=== PATIENT | male | born 1955 | race Caucasian/White ===

== ENCOUNTER 2021-12-11 07:30 | Outpatient (REF) | payer BC, SELFPAY ==
--- NOTE | ~2021-12-11 | XR_ITS ---
EXAMINATION: XR CERVICAL SPINE CLINICAL INFORMATION: Sprain. COMPARISON: None TECHNIQUE: 6 views of the cervical spine, inclusive of flexion and extension views, were obtained. FINDINGS: There is normal cervical lordosis. There is grade 1 anterolisthesis C6 over C7. The rest of the vertebral alignment is normal. The disc heights are normal. There is mild narrowing of the left C4-C5 neural foramina. The rest of the neural foramina are widely patent. No acute fracture, dislocation seen. No lytic or sclerotic process. There is moderate left C6-C7 and minimal C4-C5 facet joint hypertrophy and arthropathy. The paravertebral soft tissues are normal. XR/XR cervical spine min 6V IMPRESSION: Mild narrowing of the left C4-C5 neural foramina. Moderate left C6-C7 and mild left C5-C6 facet joint arthropathy and hypertrophy. No visible acute fracture or dislocation.
== END 2021-12-11 07:31 | disposition home or self-care (01) ==
LOC: HO.XRAY 07:30
PROVIDERS: PCP Neuromusculoskeletal Medicine, Sports Medicine; Visit Provider Neuromusculoskeletal Medicine, Sports Medicine
DX: S13.9XXD Sprain of joints and ligaments of unspecified parts of neck, subsequent encounter (principal)
CPT/HCPCS: 72052

== ENCOUNTER 2022-04-27 07:19 | Outpatient (REF) | payer BC, SELFPAY ==
--- NOTE | ~2022-04-27 | XR_ITS ---
EXAMINATION: XR FOOT, LEFT CLINICAL INFORMATION: Pain. Sprain. COMPARISON: None TECHNIQUE: AP, lateral, and oblique views of the left foot. FINDINGS: Bone alignment is normal. No fracture or dislocation is seen. Joint spaces are normal. There is a small plantar calcaneal spur. XR/XR foot LT min 3V IMPRESSION: Small plantar calcaneal spur.
[2022-04-27 07:36] LABS: MANUAL DIFF FLAG NO
[2022-04-27 08:06] LABS: Basophils Percent Auto 0.7 % (0-2); Eosinophils Absolute Auto 0.2 X10*3/uL (0.0-0.4); Eosinophils Percent Auto 4.1 % (0-4); Hematocrit 43.6 % (42.0-52.0); Hemoglobin 14.6 g/dl (14.0-18.0); Imm Gran Abs Auto 0.02 X10*3/uL (0.00-0.03); Imm Gran Pct Auto 0.4 % (0.0-0.4); Lymphocytes Absolute Auto 1.3 X10*3/uL (1.2-4.9); Mean Corpuscular HGB Conc 33.5 g/dl (31.0-36.0); Mean Corpuscular Hemoglobin 32.8 pg (27.0-33.0); Mean Platelet Volume 9.3 fL (9.4-12.4); Monocytes Absolute Auto 0.5 X10*3/uL (0.1-1.2); Monocytes Percent Auto 9.3 % (2-11); Neutrophils Absolute Auto 3.2 x10*3/uL (2.0-8.3); Neutrophils Percent Auto 60.5 % (45-73); Platelet Count 170 X10*3/uL (160-400); Red Blood Count 4.45 X10*6/uL (4.60-5.80); White Blood Count 5.4 X10*3/uL (4.8-10.8)
[2022-04-27 08:15] LABS: Estimated Average Glucose 103 mg/dL; Hemoglobin A1c % 5.2 %
[2022-04-27 08:33] LABS: Alanine Aminotransferase 26 U/L (0-40); Albumin Level 4.1 g/dL (3.5-5.0); Alkaline Phosphatase 104 U/L (39-117); Anion Gap 12 (12-20); Aspartate Amino Transferase 23 U/L (5-37); Bilirubin Total 0.8 mg/dL (0.0-1.0); Blood Urea Nitrogen 21 mg/dL (9-16); C Reactive Protein 0.16 mg/dL (< or = 0.50); Calcium 9.6 mg/dL (8.4-10.2); Carbon Dioxide 28 mmol/L (22-29); Chloride 106 mmol/L (96-108); Cholesterol 201 mg/dL; Estimated Glomerular Filt Rate > 60; Glucose Random 95 mg/dL (60-115); HDL Cholesterol 42 mg/dL; LDL Cholesterol Calculated 139 mg/dl; Potassium 4.6 mmol/L (3.3-5.1); Sodium 141 mmol/L (135-145); Total Protein 6.8 g/dL (6.5-8.0); Triglycerides 100 mg/dL
[2022-04-27 09:13] LABS: Folate 15.3 ng/mL (> or = 4.0); Vitamin B12 543 pg/mL (200-900)
== END 2022-04-27 07:20 | disposition home or self-care (01) ==
LOC: HO.LAB 07:19
PROVIDERS: PCP Neuromusculoskeletal Medicine, Sports Medicine; Visit Provider Neuromusculoskeletal Medicine, Sports Medicine
DX: Z00.00 Encounter for general adult medical examination without abnormal findings (principal); S93.602A Unspecified sprain of left foot, initial encounter; R53.83 Other fatigue
CPT/HCPCS: 36415; 73630; 80053; 80061; 82607; 82746; 83036; 85025; 86140

== ENCOUNTER 2022-05-14 16:04 | Outpatient (REF) | payer BC, SELFPAY ==
--- NOTE | ~2022-05-14 | XR_ITS ---
EXAMINATION: XR KNEE, RIGHT CLINICAL INFORMATION: Strain injury. COMPARISON: None TECHNIQUE: AP, lateral, tunnel, and sunrise views of the right knee. FINDINGS: Bones and soft tissues are normal. No fracture or joint effusion. Alignment is anatomic. Joint spaces are well maintained. There is a minimal peripheral osteophyte noted of the lateral articular surface of the patella. An enthesophyte arises from the medial femoral condyle. No abnormal soft tissue calcification. XR/XR knee RT 4V IMPRESSION: Unremarkable right knee.
== END 2022-05-14 16:05 | disposition home or self-care (01) ==
LOC: HO.XRAY 16:04
PROVIDERS: PCP Neuromusculoskeletal Medicine, Sports Medicine; Visit Provider Neuromusculoskeletal Medicine, Sports Medicine
DX: S83.91XD Sprain of unspecified site of right knee, subsequent encounter (principal)
CPT/HCPCS: 73564

== ENCOUNTER 2022-08-17 16:13 | Outpatient (REF) | payer BC, SELFPAY ==
[2022-08-21 21:47] LABS: Tetanus Antitoxiod Antibody >7.00 IU/mL
== END 2022-08-17 16:14 | disposition home or self-care (01) ==
LOC: HO.LAB 16:13
PROVIDERS: PCP Neuromusculoskeletal Medicine, Sports Medicine; Visit Provider Neuromusculoskeletal Medicine, Sports Medicine
DX: Z01.84 Encounter for antibody response examination (principal)
CPT/HCPCS: 36415; 86648; 86774

== ENCOUNTER 2022-10-11 07:28 | Outpatient (REF) | payer BC, SELFPAY ==
[2022-10-11 07:42] LABS: MANUAL DIFF FLAG NO
[2022-10-11 08:05] LABS: Basophils Percent Auto 0.7 % (0-2); Eosinophils Absolute Auto 0.2 X10*3/uL (0.0-0.4); Eosinophils Percent Auto 3.9 % (0-4); Hematocrit 45.4 % (42.0-52.0); Hemoglobin 15.6 g/dl (14.0-18.0); Imm Gran Abs Auto 0.01 X10*3/uL (0.00-0.03); Imm Gran Pct Auto 0.2 % (0.0-0.4); Lymphocytes Absolute Auto 1.4 X10*3/uL (1.2-4.9); Mean Corpuscular HGB Conc 34.4 g/dl (31.0-36.0); Mean Corpuscular Volume 98.9 fL (80.0-98.0); Mean Platelet Volume 9.1 fL (9.4-12.4); Monocytes Absolute Auto 0.5 X10*3/uL (0.1-1.2); Neutrophils Absolute Auto 3.2 x10*3/uL (2.0-8.3); Neutrophils Percent Auto 59.2 % (45-73); Platelet Count 194 X10*3/uL (160-400); Red Blood Count 4.59 X10*6/uL (4.60-5.80); Red Cell Distribution Width 12.8 % (11.0-16.0); White Blood Count 5.3 X10*3/uL (4.8-10.8)
[2022-10-11 09:08] LABS: Alanine Aminotransferase 30 U/L (0-40); Albumin Level 4.3 g/dL (3.5-5.0); Alkaline Phosphatase 110 U/L (39-117); Anion Gap 12 (12-20); Aspartate Amino Transferase 24 U/L (5-37); Bilirubin Total 0.7 mg/dL (0.0-1.0); Blood Urea Nitrogen 16 mg/dL (9-16); Calcium 9.5 mg/dL (8.4-10.2); Carbon Dioxide 31 mmol/L (22-29); Chloride 106 mmol/L (96-108); Cholesterol 220 mg/dL; Estimated Glomerular Filt Rate > 60; Glucose Random 91 mg/dL (60-115); HDL Cholesterol 48 mg/dL; LDL Cholesterol Calculated 157 mg/dl; Potassium 4.5 mmol/L (3.3-5.1); Prostate Specific Antigen 2.06 ng/mL (<0.05-4.0); Sodium 144 mmol/L (135-145); T4 Thyroxine 9.2 ug/dL (4.5-12.0); Thyroid Stimulating Hormone 1.77 uIU/mL (0.32-4.0); Total Protein 6.9 g/dL (6.5-8.0); Triglycerides 76 mg/dL
[2022-10-11 11:22] LABS: Reflex LDLD? No
[2022-10-13 04:18] LABS: Triiodothyronine T3 Total 117 ng/dL (76-181)
[2022-10-19 23:21] LABS: Testosterone, Free 74.2 pg/mL (35.0-155.0); Testosterone, Total 613 ng/dL (250-1100)
== END 2022-10-11 07:29 | disposition home or self-care (01) ==
LOC: HO.LAB 07:28
PROVIDERS: PCP Neuromusculoskeletal Medicine, Sports Medicine; Visit Provider Neuromusculoskeletal Medicine, Sports Medicine
DX: Z00.00 Encounter for general adult medical examination without abnormal findings (principal); E03.9 Hypothyroidism, unspecified; Z12.5 Encounter for screening for malignant neoplasm of prostate
CPT/HCPCS: 36415; 80053; 80061; 84153; 84402; 84403; 84436; 84443; 84480; 85025

== ENCOUNTER 2023-06-17 08:23 | Outpatient (REF) | payer BC, SELFPAY ==
--- NOTE | ~2023-06-17 | XR_ITS ---
EXAMINATION: XR KNEE, RIGHT CLINICAL INFORMATION: Reason for Exam RIGHT KNEE SPRAIN/STRAIN COMPARISON: Knee radiographs 05/14/2022 TECHNIQUE: 4 views of the knee FINDINGS: No acute fracture or dislocation. Mild degenerative changes of the knee with quadriceps tendon enthesopathy and small patellofemoral compartment osteophytes similar to prior.. No joint effusion. Soft tissues are unremarkable. XR/XR knee RT 4V IMPRESSION: * No acute osseous abnormality. * Mild degenerative changes of the knee.
[2023-06-17 08:48] LABS: MANUAL DIFF FLAG NO
[2023-06-17 09:00] LABS: Basophils Percent Auto 0.5 % (0-2); Eosinophils Absolute Auto 0.2 X10*3/uL (0.0-0.4); Eosinophils Percent Auto 2.4 % (0-4); Hematocrit 43.2 % (42.0-52.0); Hemoglobin 14.8 g/dl (14.0-18.0); Imm Gran Abs Auto 0.01 X10*3/uL (0.00-0.03); Imm Gran Pct Auto 0.2 % (0.0-0.4); Lymphocytes Absolute Auto 1.3 X10*3/uL (1.2-4.9); Lymphocytes Percent Auto 21.6 % (20-40); Mean Corpuscular HGB Conc 34.3 g/dl (31.0-36.0); Mean Corpuscular Hemoglobin 33.3 pg (27.0-33.0); Mean Corpuscular Volume 97.1 fL (80.0-98.0); Mean Platelet Volume 9.1 fL (9.4-12.4); Monocytes Absolute Auto 0.6 X10*3/uL (0.1-1.2); Monocytes Percent Auto 9.4 % (2-11); Neutrophils Absolute Auto 4.1 x10*3/uL (2.0-8.3); Neutrophils Percent Auto 65.9 % (45-73); Platelet Count 180 X10*3/uL (160-400); Red Blood Count 4.45 X10*6/uL (4.60-5.80); Red Cell Distribution Width 12.6 % (11.0-16.0); White Blood Count 6.2 X10*3/uL (4.8-10.8)
[2023-06-17 09:10] LABS: Estimated Average Glucose 94 mg/dL; Hemoglobin A1c % 4.9 %
[2023-06-17 09:34] LABS: Alanine Aminotransferase 25 U/L (0-40); Albumin Level 4.1 g/dL (3.5-5.0); Alkaline Phosphatase 98 U/L (39-117); Anion Gap 10 (12-20); Aspartate Amino Transferase 23 U/L (5-37); Bilirubin Total 1.1 mg/dL (0.0-1.0); Blood Urea Nitrogen 13 mg/dL (9-16); Calcium 9.3 mg/dL (8.4-10.2); Carbon Dioxide 28 mmol/L (22-29); Chloride 107 mmol/L (96-108); Cholesterol 195 mg/dL; Estimated Glomerular Filt Rate > 60; Glucose Random 96 mg/dL (60-115); HDL Cholesterol 42 mg/dL; LDL Cholesterol Calculated 126 mg/dl; Magnesium 2.1 mg/dL (1.6-2.6); Sodium 141 mmol/L (135-145); Total Protein 6.9 g/dL (6.5-8.0); Triglycerides 136 mg/dL
[2023-06-17 09:49] LABS: Free T4 (Free Thyroxine) 1.03 ng/dL (0.71-1.85); Thyroid Stimulating Hormone 1.39 uIU/mL (0.32-4.0)
[2023-06-17 09:50] LABS: Prostate Specific Antigen 2.13 ng/mL (<0.05-4.0)
[2023-06-18 20:22] LABS: Triiodothyronine T3 Total 140 ng/dL (76-181)
[2023-06-21 02:23] LABS: Testosterone, Total 494 ng/dL (250-1100)
== END 2023-06-17 08:24 | disposition home or self-care (01) ==
LOC: HO.LAB 08:23
PROVIDERS: Visit Provider Neuromusculoskeletal Medicine, Sports Medicine
DX: Z00.00 Encounter for general adult medical examination without abnormal findings (principal); Z12.5 Encounter for screening for malignant neoplasm of prostate; R53.83 Other fatigue; S83.91XD Sprain of unspecified site of right knee, subsequent encounter; E78.41 Elevated Lipoprotein(a); E11.65 Type 2 diabetes mellitus with hyperglycemia
CPT/HCPCS: 36415; 73564; 80053; 80061; 83036; 83735; 84153; 84403; 84439; 84443; 84480; 85025

== ENCOUNTER 2023-10-04 07:52 | Outpatient (REF) | payer BC, SELFPAY ==
--- NOTE | ~2023-10-04 | XR_ITS ---
EXAMINATION: XR CHEST CLINICAL INFORMATION: Worsening wheeze COMPARISON: None available. TECHNIQUE: 2 views of the chest were obtained. FINDINGS: Heart and mediastinum within normal limits. No vascular congestion, consolidations or effusions. Diffusely increased interstitial markings throughout the lung cornelius. Mild degenerative changes. XR/XR chest 2V IMPRESSION: Diffusely increased interstitial markings, question small airway disease. No consolidations or failure.
== END 2023-10-04 07:53 | disposition home or self-care (01) ==
LOC: HO.XRAY 07:52
PROVIDERS: PCP Neuromusculoskeletal Medicine, Sports Medicine; Visit Provider Neuromusculoskeletal Medicine, Sports Medicine
DX: R06.2 Wheezing (principal)
CPT/HCPCS: 71046

== ENCOUNTER 2023-11-01 15:26 | Outpatient (REF) | payer BC, SELFPAY ==
--- NOTE | ~2023-11-01 | XR_ITS ---
EXAMINATION: XR CHEST CLINICAL INFORMATION: Episodic wheezing. COMPARISON: 10/04/2023 TECHNIQUE: 3 views of the chest. FINDINGS: Redemonstration of diffusely prominent lung parenchymal markings. There is no gross pneumothorax. Heart size is normal. No pleural effusion. Degenerative changes in the thoracic spine. XR/XR chest 2V IMPRESSION: Redemonstration of diffusely prominent lung parenchymal markings of indeterminate chronicity and etiology. Differential considerations include mild vascular congestion, inflammatory/infectious process or chronic process.
== END 2023-11-01 15:27 | disposition home or self-care (01) ==
LOC: HO.XRAY 15:26
PROVIDERS: Visit Provider Neuromusculoskeletal Medicine, Sports Medicine
DX: R06.2 Wheezing (principal)
CPT/HCPCS: 71046

== ENCOUNTER 2023-11-22 08:28 | Outpatient (REF) | payer BC, SELFPAY ==
--- NOTE | ~2023-11-22 | US_ITS ---
EXAMINATION: US ABDOMEN COMPLETE CLINICAL INFORMATION: Abdominal pain. COMPARISON: None. TECHNIQUE: Real-time imaging of the abdominal viscera. Technically limited study secondary to bowel gas. FINDINGS: PANCREAS: Obscured by bowel gas. ABDOMINAL AORTA: The proximal, mid, and distal segments are normal in caliber. INFERIOR VENA CAVA: Visualized portions are normal. LIVER: Normal. The liver is normal in size. The liver contour is normal. Parenchymal echogenicity is normal. No focal hepatic lesion. There is no intrahepatic biliary duct dilatation seen. GALLBLADDER: Normal. The gallbladder is physiologically distended without evidence of stones, sludge, polyps, wall thickening or pericholecystic fluid. COMMON BILE DUCT: Normal in caliber measuring 0.34 cm in diameter. RIGHT KIDNEY: Normal. No hydronephrosis. No renal calculi or focal parenchymal lesions. The kidney measures 11.1 cm in maximum dimension. LEFT KIDNEY: Normal. No hydronephrosis. No renal calculi or focal parenchymal lesions. The kidney measures 12.1 cm in maximum dimension. SPLEEN: Normal. The spleen measures 9.2 cm in maximum dimension. FREE FLUID: None. US/US abdomen complete IMPRESSION: Nonvisualization of the pancreas due to bowel gas. Otherwise normal abdominal ultrasound.
== END 2023-11-22 08:29 | disposition home or self-care (01) ==
LOC: HO.HMGCX 08:28
PROVIDERS: PCP Neuromusculoskeletal Medicine, Sports Medicine; Visit Provider Neuromusculoskeletal Medicine, Sports Medicine
DX: R10.9 Unspecified abdominal pain (principal)
CPT/HCPCS: 76700

== ENCOUNTER 2024-09-29 08:02 | Outpatient (REF) | payer BC, SELFPAY ==
[2024-09-29 08:22] LABS: MANUAL DIFF FLAG NO
[2024-09-29 08:58] LABS: Basophils Percent Auto 0.5 % (0-2); Eosinophils Absolute Auto 0.2 X10*3/uL (0.0-0.4); Eosinophils Percent Auto 3.3 % (0-4); Hematocrit 42.5 % (42.0-52.0); Hemoglobin 14.4 g/dl (14.0-18.0); Imm Gran Abs Auto 0.02 X10*3/uL (0.00-0.03); Imm Gran Pct Auto 0.4 % (0.0-0.4); Lymphocytes Absolute Auto 1.3 X10*3/uL (1.2-4.9); Lymphocytes Percent Auto 22.8 % (20-40); Mean Corpuscular HGB Conc 33.9 g/dl (31.0-36.0); Mean Corpuscular Hemoglobin 33.5 pg (27.0-33.0); Mean Corpuscular Volume 98.8 fL (80.0-98.0); Mean Platelet Volume 9.7 fL (9.4-12.4); Monocytes Absolute Auto 0.5 X10*3/uL (0.1-1.2); Monocytes Percent Auto 8.8 % (2-11); Neutrophils Absolute Auto 3.5 x10*3/uL (2.0-8.3); Neutrophils Percent Auto 64.2 % (45-73); Platelet Count 181 X10*3/uL (160-400); Red Cell Distribution Width 13.1 % (11.0-16.0); White Blood Count 5.5 X10*3/uL (4.8-10.8)
[2024-09-29 09:40] LABS: Alanine Aminotransferase 27 U/L (0-40); Alkaline Phosphatase 90 U/L (39-117); Anion Gap 9 (12-20); Aspartate Amino Transferase 29 U/L (5-37); Blood Urea Nitrogen 14 mg/dL (9-16); Calcium 9.3 mg/dL (8.4-10.2); Carbon Dioxide 29 mmol/L (22-29); Chloride 107 mmol/L (96-108); Cholesterol 211 mg/dL (<200); Estimated Glomerular Filt Rate > 60; Glucose Random 100 mg/dL (60-115); HDL Cholesterol 42 mg/dL (>40); LDL Cholesterol Calculated 153 mg/dL (<100); Potassium 4.1 mmol/L (3.3-5.1); Prostate Specific Antigen 2.35 ng/mL (<0.05-4.0); Sodium 141 mmol/L (135-145); Total Protein 6.9 g/dL (6.5-8.0); Triglycerides 80 mg/dL (<150)
[2024-09-29 09:46] LABS: T4 Thyroxine 9.3 ug/dL (4.5-12.0); Thyroid Stimulating Hormone 0.46 uIU/mL (0.32-4.0)
[2024-10-01 18:08] LABS: Triiodothyronine T3 Total 112 ng/dL (76-181)
[2024-10-07 18:43] LABS: Testosterone, Free 57.9 pg/mL (30.0-135.0); Testosterone, Total 526 ng/dL (250-1100)
== END 2024-09-29 08:03 | disposition home or self-care (01) ==
LOC: HO.LAB 08:02
PROVIDERS: PCP Neuromusculoskeletal Medicine, Sports Medicine; Visit Provider Neuromusculoskeletal Medicine, Sports Medicine
DX: Z00.00 Encounter for general adult medical examination without abnormal findings (principal); R51.9 Headache, unspecified; R53.83 Other fatigue; Z12.5 Encounter for screening for malignant neoplasm of prostate
CPT/HCPCS: 36415; 80053; 80061; 84153; 84402; 84403; 84436; 84443; 84480; 85025

== ENCOUNTER 2025-04-01 07:45 | Outpatient (REF) | payer BC, SELFPAY ==
--- NOTE | ~2025-04-01 | US_ITS ---
CLINICAL HISTORY: PELVIC PAIN US abdomen limited with duplex and color Doppler Comparison: US/SR - US ABDOMEN COMPLETE - 11/22/23 08:52 EST Findings: Sonographic evaluation of the area of clinical concern right lower quadrant postsurgical scar demonstrates shadowing from a abdominal mesh in this region. No masses lymphadenopathy or hernia was demonstrated on this dynamic study with and without Valsalva. Impression: 1. Shadowing from a known right lower quadrant abdominal wall mesh at the surgical scar region with no evidence of a hernia on this dynamic study This document has been electronically signed by: Blaine Flores MD on 04/01/2025 16:35:08
== END 2025-04-01 07:46 | disposition home or self-care (01) ==
LOC: HO.US 07:45
PROVIDERS: Visit Provider Neuromusculoskeletal Medicine, Sports Medicine
DX: R10.2 Pelvic and perineal pain (principal)
CPT/HCPCS: 76856

== ENCOUNTER 2025-04-14 09:37 | Outpatient (REF) | payer BC, SELFPAY ==
[2025-04-14 10:12] LABS: MANUAL DIFF FLAG NO
[2025-04-14 10:34] LABS: Basophils Percent Auto 0.5 % (0-2); Eosinophils Absolute Auto 0.2 X10*3/uL (0.0-0.4); Eosinophils Percent Auto 2.8 % (0-4); Hematocrit 41.8 % (42.0-52.0); Hemoglobin 14.2 g/dl (14.0-18.0); Imm Gran Abs Auto 0.01 X10*3/uL (0.00-0.03); Imm Gran Pct Auto 0.2 % (0.0-0.4); Lymphocytes Absolute Auto 1.2 X10*3/uL (1.2-4.9); Lymphocytes Percent Auto 19.5 % (20-40); Mean Corpuscular Hemoglobin 33.2 pg (27.0-33.0); Mean Corpuscular Volume 97.7 fL (80.0-98.0); Mean Platelet Volume 9.4 fL (9.4-12.4); Monocytes Absolute Auto 0.5 X10*3/uL (0.1-1.2); Monocytes Percent Auto 8.4 % (2-11); Neutrophils Absolute Auto 4.3 x10*3/uL (2.0-8.3); Neutrophils Percent Auto 68.6 % (45-73); Platelet Count 185 X10*3/uL (160-400); Red Blood Count 4.28 X10*6/uL (4.60-5.80); Red Cell Distribution Width 12.8 % (11.0-16.0); White Blood Count 6.3 X10*3/uL (4.8-10.8)
[2025-04-14 11:15] LABS: Anion Gap 10 (12-20); Blood Urea Nitrogen 17 mg/dL (9-16); Calcium 9.2 mg/dL (8.4-10.2); Carbon Dioxide 28 mmol/L (22-29); Chloride 106 mmol/L (96-108); Cholesterol 201 mg/dL (<200); Estimated Glomerular Filt Rate > 60; Glucose Fasting 93 mg/dL (60-99); HDL Cholesterol 44 mg/dL (>40); LDL Cholesterol Calculated 142 mg/dL (<100); Potassium 4.4 mmol/L (3.3-5.1); Sodium 140 mmol/L (135-145); Triglycerides 77 mg/dL (<150)
[2025-04-14 11:31] LABS: T4 Thyroxine 10.4 ug/dL (4.5-12.0); Thyroid Stimulating Hormone 0.58 uIU/mL (0.32-4.0)
[2025-04-15 06:58] LABS: Triiodothyronine T3 Free 3.6 pg/mL (2.3-4.2)
== END 2025-04-14 09:38 | disposition home or self-care (01) ==
LOC: HO.LAB 09:37
PROVIDERS: PCP Neuromusculoskeletal Medicine, Sports Medicine; Visit Provider Neuromusculoskeletal Medicine, Sports Medicine
DX: R51.9 Headache, unspecified (principal); R53.83 Other fatigue
CPT/HCPCS: 36415; 80048; 80061; 84436; 84443; 84481; 85025

== ENCOUNTER 2025-09-14 07:25 | Outpatient (REF) | payer BC, SELFPAY ==
--- OUTSIDE RECORDS SUMMARY | 2025-09-14 07:28 | XMS_ITS | Encounter Summary ---
Author Organization [facility] Address [address] [place] [phone] Phone Care Team Providers Care Flight Director Name Role Phone Kyle Lutz DO Primary Care Provider Encounter Details Date Type Department Care Team (Late st Contact Info) Description 02/12/2020 Ancillary Orders Virtual Department [address] [place] [address] Kyle Lutz DO [address] [place] [address] RLQ abdominal pain Social History Tobacco Use Types Packs/Day Years Used Date Smoking Tobacco: Never Smokeless Tobacco: Never Alcohol Use Standard Drinks/Week Comments Not Currently 0 (1 standard drink = 0.6 oz pur e alcohol) Sex and Gender Information Value Date Recorded Sex Assigned at Male 04/09/2019 12:05 AM EDT Legal Sex Male 9:58 PM EDT Gender Identity Male 04/09/2019 12:05 AM EDT Sexual Orientation Not on file documented as of this encounter Plan of Treatment Not on file documented as of this encounter Visit Diagnoses Diagnosis RLQ abdominal pain Abdominal pain, right lower quadrant documented in this encounter Care Teams Flight Director Relationship Specialty Start Date End Date Kyle Lutz DO [address] [place] [id number] PCP - General Internal Medicine 02/13/18 documented as of this encounter Additional Source Comments The information contained in this document represents components of the legal health record. It is not the complete legal health record.[facility]
--- OUTSIDE RECORDS SUMMARY | 2025-09-14 07:28 | XMS_ITS | Encounter Summary ---
Author Organization [facility] Address [address] [place] [phone] Phone Care Team Providers Care Digital Content Coordinator Name Role Phone Kyle Lutz DO Primary Care Provider Encounter Details Date Type Department Care Team (Latest Contact Info) Description 02/14/2018 Transcribe Orders [facility] [address] [place] [address] Kyle Lutz DO [address] [place] [address] Routine general medical examination at a health care facility (Primary Dx) Social History Tobacco Use Types Packs/Day Years Used Date Smoking Tobacco: Never Assessed Sex and Gender Information Value Date Recorded Sex Assigned at Male 04/09/2019 12:05 AM EDT Legal Sex Male 9:58 PM EDT Gender Identity Male 04/09/2019 12:05 AM EDT Sexual Orientation Not on file documented as of this encounter Plan of Treatment Not on file documented as of this encounter Results * (ABNORMAL) 25-OH vitamin D (02/14/2018 8:31 AM EDT) 25 OH VIT D (TOTAL) 22(L) 30 - 1,000 ng/mL [facility] Blood 02/14/2018 8:31 AM EDT 02/14/2018 8:36 AM EDT Kyle Lutz DO LAB BLOOD ORDERABLES F inal Result [address] [address] * Magnesium (02/14/2018 8:31 AM EDT) MAGNESIUM 2.0 1.6 - 2.6 mg/dL [facility] Blood 02/14/2018 8:31 AM EDT 02/14/2018 8:36 AM EDT us Kyle Lutz DO LAB BLOOD ORDERABLES F inal Result [address] [address] * T4, total (02/14/2018 8:31 AM EDT) THYROXINE 8.9 4.6 - 12.0 ug/dL [facility] Blood 02/14/2018 8:31 AM EDT 02/14/2018 8:36 AM EDT us Kyle Lutz DO LAB BLOOD ORDERABLES F inal Result [address] [address] * T3, Total (02/14/2018 8:31 AM EDT) TOTAL T3 106 80 - 200 ng/dL [facility] Blood 02/14/2018 8:31 AM EDT 02/14/2018 8:36 AM EDT Kyle Lutz DO LAB BLOOD ORDERABLES F inal Result [facility] [address] [place] [address] * TSH (02/14/2018 8:31 AM EDT) TSH 2.13 0.27 - 4.20 uIU/mL [facility] Blood 02/14/2018 8:31 AM EDT 02/14/2018 8:36 AM EDT Kyle Irizarryrity LAB BLOOD ORDERABLES F inal Result Performing Organization Address City/[facility]/ZIP Co de Phone Number [address] [address] * PSA (screening) (02/14/2018 8:31 AM EDT) PSA 1.45 0 - 4.00 ng/mL [facility] Blood 02/14/2018 8:31 AM EDT 02/14/2018 8:36 AM EDT [facility] F inal Result Performing Organization Address [facility] Co de Phone Number [address] [address] * Hemoglobin A1c (02/14/2018 8:31 AM EDT) HEMOGLOBIN A1C 5.1 4.3 - 5.8 % [facility] Blood 02/14/2018 8:31 AM EDT 02/14/2018 8:36 AM EDT [facility]LOOD [facility]LES F inal Result Performing Organization Address [facility] Co de Phone Number [address] [address] * (ABNORMAL) CBC and differential (02/14/2018 8:31 AM EDT) WBC 5.36 3.40 - 11.20 K/uL [facility] RBC 4.47(L) 4.50 - 5.50 M/uL [facility] HGB 14.6 13.0 - 17.0 g/dL [facility] HCT 42.4 40.0 - 51.0 % [facility] PLT 212 130 - 400 K/uL [facility] MCV 94.9 79.0 - 98.0 fL [facility] MCH 32.7 27.0 - 34.8 pg [facility] MCHC 34.4 31.5 - 36.0 g/dL [facility] RDW 11.9 10.8 - 14.6 % [facility] MPV 9.5 9.4 - 12.4 fl [facility] NRBC 0.00 /100 WBCs [facility] ABSOLUTE NRBC 0.00 K/uL [facility] DIFF METHOD Auto [facility] NEUTS 58.4 45.30 - 77.70 % [facility] LYMPHS 27.2 12.30 - 39.70 % [facility] MONOS 9.1 4.10 - 12.80 % [facility] EOS 4.1 0 - 7.2 % [facility] BASOS 0.6 0 - 2.80 % [facility] Granulocytes, immature (%) 0.6 0.0 - 0.9 % [facility] ABSOLUTE NEUTS 3.13 1.40 - 7.70 K/uL [facility] ABSOLUTE LYMPHS 1.46 0.60 - 3.20 K/uL [facility] ABSOLUTE MONOS 0.49 0.11 - 0.59 K/uL [facility] ABSOLUTE EOS 0.22 0.01 - 0.50 K/uL [facility] ABSOLUTE BASOS 0.03 0.00 - 0.08 K/uL [facility] Granulocytes, immature 0.03 0.00 - 0.05 K/uL [facility] Blood 02/14/2018 8:31 AM EDT 02/14/2018 8:36 AM EDT us Kyle Lutz DO LAB BLOOD ORDERABLES F inal Result [facility] [address] [place] [address] * Lipid panel (02/14/2018 8:31 AM EDT) HDL 35 mg/dL [facility] Comment: Interpretation: Risk Level Males Decreased >45 mg/dL Average 40-45 mg/dL Increased <40 mg/dL CHOLESTEROL 165 0 - 240 mg/dL [facility] TRIGLYCERIDES 105 30 - 160 mg/dL [facility] LDL 109 50 - 129 mg/dL [facility] Comment: LDL levels in terms of risk for coronary heart disease: <100 mg/dL: Optimal 100-129 mg/dL: Near or above optimal 130-159 mg/dL: Borderline high 160-189 mg/dL: High >190 mg/dL: Very High CARDIAC RISK RATIO 4.7 3.4 - 5.0 C [facility] Blood 02/14/2018 8:31 AM EDT 02/14/2018 8:36 AM EDT us Kyle Lutz DO LAB BLOOD ORDERABLES F inal Result [facility] [address] [place] [address] * (ABNORMAL) Comprehensive metabolic panel (02/14/2018 8:31 AM EDT) SODIUM 139 133 - 146 mmol/L [facility] POTASSIUM 4.4 3.3 - 5.1 mmol/L [facility] CHLORIDE 102 96 - 108 mmol/L [facility] CO2 27 21 - 35 mmol/L [facility] BUN 21(H) 6 - 19 mg/dL [facility] CREATININE 0.90 0.5 - 1.5 mg/dL [facility] GLUCOSE 98 70 - 99 mg/dL [facility] ALBUMIN 3.9 3.9 - 4.8 g/dL [facility] TOTAL PROTEIN 6.8 6.5 - 8.0 g/dL [facility] CALCIUM 8.8 8.4 - 10.3 mg/dL [facility] ALKALINE PHOSPHATASE 101 39 - 117 U/L [facility] TOTAL BILIRUBIN 0.4 0.0 - 1.2 mg/dL [facility] AST 23 0 - 37 U/L [facility] ALT 27 0 - 40 U/L [facility] GLOBULIN 2.9 1 - 4.8 g/dL [facility] EGFR 90 >59 mL/min/1.7 3m2 [facility] Comment:If patient is black, multiply result by 1.159. The eGFR calculation has changed from the MDRD equation to the CKD-EPI equation as of January 28, 2018. ANION GAP 14 10 - 20 mmol/L [facility] Blood 02/14/2018 8:31 AM EDT 02/14/2018 8:36 AM EDT Kyle Lutz DO LAB BLOOD ORDERABLES F inal Result Performing Organization Address City/State/[facility] Co de Phone Number [facility] [address] [place] [address] documented in this encounter Visit Diagnoses Diagnosis Routine general medical examination at a health care facility- Primary documented in this encounter Care Teams Digital Content Coordinator Relationship Specialty Start Date End Date Kyle Lutz DO [address] [place] [address] PCP - General Internal Medicine 02/13/18 documented as of this encounter Additional Source Comments The information contained in this document represents components of the legal health record. It is not the complete legal health record.[facility]
--- OUTSIDE RECORDS SUMMARY | 2025-09-14 07:28 | XMS_ITS | Encounter Summary ---
Author Organization [facility] Address [address] [place] [address] Phone Care Team Providers Care Sugarcane Research Technician Name Role Phone Kyle Lutz DO Primary Care Provider Encounter Details Date Type Department Care Team (Late st Contact Info) Description 11/01/2020 Ancillary Orders Virtual Department [address] [place] [address] Kyle Lutz DO [address] [place] [address] Sprain of pelvis, initial encounter Social History Tobacco Use Types Packs/Day Years [...] documented as of this encounter Results * XR PELVIS 1 VIEW (11/03/2020 8:38 AM EST) Anatomical Region Laterality Modality Pelvis Computed Radiogr aphy 11/03/2020 9:06 AM EST Impressions 11/03/2020 9:08 AM EST No pelvic pathology is apparent. POS [id number] Narrative 11/03/2020 9:08 AM EST Single view Compare 09/23/2019 No evidence of trauma, tumor or infection SI joints and symphysis pubis unremarkable. Procedure Note Joaquin Kirkland MD - 11/03/2020 Single view Compare 09/23/2019 No evidence of trauma, tumor or infection SI joints and symphysis pubis unremarkable. IMPRESSION: No pelvic pathology is apparent. POS [id number] Kyle Lutz DO IMG XR PELVIS Final Result documented in this encounter Visit Diagnoses Diagnosis Sprain of pelvis, initial encounter documented in this encounter Care Teams Sugarcane Research Technician Relationship Specialty Start Date End Date Kyle Lutz DO [address] [place] [id number] PCP - General Internal Medicine 02/13/18 documented as of this encounter Additional Source Comments The information contained in this document represents components of the legal health record. It is not the complete legal health record.[facility]
--- OUTSIDE RECORDS SUMMARY | 2025-09-14 07:28 | XMS_ITS | Clinical Summary ---
Author Organization [facility] Address [address] [place] [address] Phone Care Team Providers Care Wire Temperer Name Role Phone Kyle Lutz DO Primary Care Provider Allergies No known active allergies Medications levothyroxine (SYNTHROID, LEVOTHROID) 125 MCG tablet Take 125 mcg by mouth every morning. Active acetaminophen (TYLENOL) 325 mg tablet Take 2 tablets (650 mg total) by mouth every 6 (six) hours as needed for mild pain. 0 04/09/2019 Active oxyCODONE 5 MG immediate release tablet Take 1 tablet (5 mg total) by mouth every 6 (six) hours as needed for moderate pain. Partial fill ok 25 tablet 04/09/2019 Active Active Problems Problem Noted Date Diagnosed Date Hx of colonoscopy 04/09/2019 Resolved Problems Problem Noted Date Diagnosed Date Resolved Date Incarcerated right inguinal hernia 04/09/2019 04/09/2019 Immunizations Immunization Administration Dates Next Due Influenza High-Dose Trivalent Preservative Free IM 09/07/2020,09/07/2020 Social History Tobacco Use Types Packs/Day Years Used Date Smoking Tobacco: Never Smokeless Tobacco: Never Alcohol Use Standard Drinks/Week Comments Not Currently 0 (1 standard drink = 0.6 oz pur e alcohol) Education Answer Date Recorded Are you interested in more education? Not on yoko e 03/22/2023 Are you concerned about learning? Not on file 03/22/2023 No 03/22/2023 No 03/22/2023 Digital Access Answer Date Recorded No 04/22/2023 No 04/22/2023 No 04/22/2023 Reliable internet access at home? Not on file 04/22/2023 Device with a working camera? Not on file Sex and Gender Information Value Date Recorded Sex Assigned at Male 04/09/2019 12:05 AM EDT Legal Sex Male 9:58 PM EDT Gender Identity Male 04/09/2019 12:05 AM EDT Sexual Orientation Not on file Last Filed Vital Signs Vital Sign Reading Time Taken Comments Blood Pressure 108/63 04/09/2019 4:20 PM EDT Pulse 64 04/09/2019 4:20 PM EDT Temperature 37.5 C (99.5 F) 04/09/2019 4:20 PM EDT Respiratory Rate 16 04/09/2019 4:20 PM EDT Oxygen Saturation 97% 04/09/2019 4:20 PM EDT Inhaled Oxygen Concentration - - Weight 97.5 kg (215 lb) 04/09/2019 12:04 AM EDT Height 182.9 cm (6') 04/09/2019 12:04 AM EDT Body Mass Index 29.16 04/09/2019 12:04 AM EDT Plan of Treatment Health Maintenance Due Date Last Done Comments DEPRESSION SCREENING 1965 HEPATITIS C SCREENING 1971 SMOKING STATUS SCREENING (Once After 26 Yrs) 1979 COLOGUARD 1998 COLONOSCOPY 1998 COLORECTAL CANCER SCREENING 1998 FIT TEST 1998 FOBT 1998 SIGMOIDOSCOPY 1998 VIRTUAL COLONOSCOPY 1998 PNEUMOCOCCAL VACCINES (50+ years) (1 of 1 - PCV) 2003 ZOSTER VACCINES (1 of 2) 2003 TSH LEVEL 04/19/2021 04/19/2020, 09/26, 02/05/2019, Additional history exists Adult Td,Tdap Booster 05/18/2024 05/18/2014 LIPID PANEL 04/19/2025 04/19/2020, 08/27, 02/05/2019, Additional history exists INFLUENZA VACCINE (#1) 2025 , 09/07/2020, 09/08/2019, Additional history exists COVID-19 VACCINE (3 - season) 2025 12/28/2020, 11/30/2020 RSV VACCINE (1 - 1-dose 75+ series) 2028 HEPATITIS A VACCINES Aged Out No long er eligible based on patient's age to complete this topic HIB VACCINES Aged Out No longer eligi ble based on patient's age to complete this topic MENINGOCOCCAL VACCINES (ACWY) Aged Out No longer eligible based on patient's age to complete this topic MENINGOCOCCAL VACCINES (B) Aged Out N o longer eligible based on patient's age to complete this topic Medical Devices Implanted Type Area Interactive Media Designer Device Identifier Shelf Expiration Date Model / Serial / Lot Mesh Surgical 15cm 8 Hernia Prolene Polypropylene Nonabsorbable Repair Bx/[id number] - [id number] Implanted:Qty: 1 on 04/09/2019 by Ivy Estrada MD at [facility] STANDARD Right: Groin TARAH ETHICON / DIVISION [employer] J 07/25/2023 [id number] / / [id number] Procedures Procedure Name Priority Date/Time Associated Diagnosis Comments LIPID PANEL Routine 04/19/2020 8:43 AM EDT Myxedema heart disease Fatigue, unspecified type Vitamin D deficiency TSH Routine 04/19/2020 8:43 AM EDT Myxedema heart disease Fatigue, unspecified type Vitamin D deficiency from Last 3 Months or Most Recently Relevant to Health Maintenance Results * TSH (04/19/2020 8:43 AM EDT) TSH 0.98 0.27 - 4.20 uIU/mL [facility] Blood 04/19/2020 8:43 AM EDT 04/19/2020 8:45 AM EDT us Kyle Lutz DO LAB BLOOD ORDERABLES F inal Result [facility] [address] [place] [address] * Lipid panel (04/19/2020 8:43 AM EDT) HDL 50 mg/dL [facility] Comment: Interpretation <40 mg/dL: Low HDL cholesterol (major risk factor for CHD) Greater than or equal to 60 mg/dL: High HDL cholesterol ( negative risk factor for CHD) HDL - cholesterol is affected by a number of factors, e.g. smoking, excerise, hormones, sex and age. CHOLESTEROL 183 0 - 240 mg/dL [facility] TRIGLYCERIDES 89 30 - 160 mg/dL [facility] LDL 115 50 - 129 mg/dL [facility] Comment: LDL levels in terms of risk for coronary heart disease: <100 mg/dL: Optimal 100-129 mg/dL: Near or above optimal 130-159 mg/dL: Borderline high 160-189 mg/dL: High >190 mg/dL: Very High CARDIAC RISK RATIO 3.7 3.4 - 5.0 C [facility] Blood 04/19/2020 8:43 AM EDT 04/19/2020 8:45 AM EDT Kyle Lutz DO LAB BLOOD ORDERABLES F inal Result [facility] [address] [place] [address] from Last 3 Months or Most Recently Relevant to Health Maintenance Insurance MEDICARE A [facility] PPO MEDICARE A [facility] PPO MEDICARE A [place] [employer] OUT OF STATE PPO MEDICARE A [facility] PPO MEDICARE A [facility] OUT STATE PPO MEDICARE A [facility] PPO MEDICARE A [facility] OUT [facility] PPO MEDICARE A [facility] OUT [facility] PPO MEDICARE A [facility] PPO Care Teams Wire Temperer Relationship Specialty Start Date End Date Kyle Lutz DO [address] [place] [id number] PCP - General Internal Medicine 02/13/18 Additional Source Comments The information contained in this document represents components of the legal health record. It is not the complete legal health record.[facility]
--- OUTSIDE RECORDS SUMMARY | 2025-09-14 07:28 | XMS_ITS | Encounter Summary ---
Author Organization [facility] Address [address] [place] [address] Phone Care Team Providers Care Target Network Analyst Name Role Phone Kyle Lutz DO Primary Care Provider Encounter Details Date Type Department Care Team (Late st Contact Info) Description 09/23/2019 Ancillary Orders [facility], X-Ray - [address] [address] Kyle Lutz DO 15 [place] [address] Pain of upper abdomen Social History Tobacco Use Types Packs/Day Years [...] as of this encounter Results * XR ABDOMEN 1 VIEW (09/23/2019 8:23 AM EDT) Anatomical Region Laterality Modality Abdomen Radiographic Aidee ging 09/23/2019 1:36 PM EDT Impressions 09/23/2019 1:38 PM EDT Nonobstructive bowel gas pattern. POS - [id number] Narrative 09/23/2019 1:38 PM EDT EXAM: XR ABDOMEN 1 VIEW COMPARISON: Abdominal radiograph on April 24, 2019. FINDINGS: Nonobstructive bowel gas pattern. Moderate amount of fecal load in the colonic loops. No abnormal calcifications or lucencies. Osseous structures are grossly intact. Procedure Note João Munoz MD - 09/23/2019 EXAM: XR ABDOMEN 1 VIEW COMPARISON: Abdominal radiograph on April 24, 2019. FINDINGS: Nonobstructive bowel gas pattern. Moderate amount of fecal load in thecolonic loops. No abnormal calcifications or lucencies. Osseous structuresare grossly intact. IMPRESSION: Nonobstructive bowel gas pattern. POS - [id number] Kyle Lutz DO IMG XR ABDOMEN Final Result documented in this encounter Visit Diagnoses Diagnosis Pain of upper abdomen Pain of upper abdomen documented in this encounter Care Teams Target Network Analyst Relationship Specialty Start Date End Date Kyle Lutz DO [address] [place] [address] PCP - General Internal Medicine 02/13/18 documented as of this encounter Additional Source Comments The information contained in this document represents components of the legal health record. It is not the complete legal health record.[facility]
--- OUTSIDE RECORDS SUMMARY | 2025-09-14 07:28 | XMS_ITS | Encounter Summary ---
Author Organization [facility] Address [address] [place] [phone] Phone Care Team Providers Care Education Research Analyst Name Role Phone Kyle Lutz DO Primary Care Provider Encounter Details Date Type Department Care Team (Latest Contact Info) Description 04/23/2019 Transcribe Orders Virtual Department 30 [place] [address] Kyle Lutz DO 15 [place] [address] Abdominal pain, unspecified abdominal location (Primary Dx) Social History Tobacco Use Types [...] encounter Results * XR ABDOMEN 1 VIEW (04/24/2019 8:49 AM EDT) Anatomical Region Laterality Modality Abdomen Radiographic Aidee ging 04/24/2019 9:05 AM EDT Impressions 04/24/2019 9:09 AM EDT Moderate amount of stool in the colon without evidence of a bowel obstruction. POS - [id number] Narrative 04/24/2019 9:09 AM EDT HISTORY: History of recent right inguinal repair for an incarcerated hernia. COMPARISON: 10/13/2018, CT abdomen and pelvis 04/09/2019 FINDINGS: Supine AP views of the abdomen were performed. Moderate volumes of stool throughout the colon. Bowel gas pattern is nonobstructed. No abdominal stones of concern. No organomegaly. Lung bases are clear. Mild to moderate multilevel degenerative changes in the spine. Procedure Note Christiano Pryor MD - 04/24/2019 HISTORY: History of recent right inguinal repair for an incarceratedhernia. COMPARISON: 10/13/2018, CT abdomen and pelvis 04/09/2019 FINDINGS: Supine AP views of the abdomen were performed. Moderate volumes of stool throughout the colon. Bowel gas pattern isnonobstructed. No abdominal stones of concern. No organomegaly. Lungbases are clear. Mild to moderate multilevel degenerative changes in thespine. IMPRESSION: Moderate amount of stool in the colon without evidence of a bowelobstruction. POS - [id number] Kyle Lutz DO IMG XR ABDOMEN Final Result documented in this encounter Visit Diagnoses Diagnosis Abdominal pain, unspecified abdominal location- Primary Abdominal pain, unspecified abdominal location documented in this encounter Care Teams Education Research Analyst Relationship Specialty Start Date End Date Kyle Lutz DO [address] [place] [address] PCP - General Internal Medicine 02/13/18 documented as of this encounter Additional Source Comments The information contained in this document represents components of the legal health record. It is not the complete legal health record.[facility]
--- OUTSIDE RECORDS SUMMARY | 2025-09-14 07:28 | XMS_ITS | Encounter Summary ---
Author Organization [facility] Address [address] [place] [address] Phone Care Team Providers Care Roller Stainer Name Role Phone Kyle Lutz DO Primary Care Provider Encounter Details Date Type Department Care Team (Latest Contact Info) Description 06/11/2018 Transcribe Orders [facility] [address] [place] [address] Kyle Lutz DO [address] [place] [address] Fatigue, unspecified type (Primary Dx) Social History Tobacco Use Types [...] as of this encounter Results * (ABNORMAL) D-dimer (06/11/2018 9:25 AM EDT) D-DIMER 591(H) <500 ng/mL FEU [facility] Comment:In patients with low to moderate pre-test probability scores for VTE (PE or DVT), a D-Dimer cut-off less than 500 ng/mL (FEU) has a negative predictive value (NPV) of 97 to 100%. Blood 06/11/2018 9:25 AM EDT 06/11/2018 9:38 AM EDT Kyle Lutz DO LAB BLOOD ORDERABLES F inal Result [facility] [address] [place], [place] [id number] documented in this encounter Visit Diagnoses Diagnosis Fatigue, unspecified type- Primary documented in this encounter Care Teams Roller Stainer Relationship Specialty Start Date End Date Kyle Lutz DO [address] [place] [address] PCP - General Internal Medicine 02/13/18 documented as of this encounter Additional Source Comments The information contained in this document represents components of the legal health record. It is not the complete legal health record.[facility]
--- OUTSIDE RECORDS SUMMARY | 2025-09-14 07:28 | XMS_ITS | Encounter Summary ---
Author Organization [facility] Address [address] [place] [address] Phone Care Team Providers Care Transplanter Name Role Phone Kyle Lutz DO Primary Care Provider Encounter Details Date Type Department Care Team (Late st Contact Info) Description 10/13/2018 Ancillary Orders Virtual Department [address] [place] [address] Kyle Lutz DO 15 [place] [address] Abdominal pain, unspecified abdominal location; History of left knee replacement Social History Tobacco Use Types Packs/Day Years [...] encounter Results * XR ABDOMEN 1 VIEW (10/13/2018 4:08 PM EST) Anatomical Region Laterality Modality Abdomen Radiographic Aidee ging 10/13/2018 5:22 PM EST Impressions 10/13/2018 5:25 PM EST Large volumes of stool throughout the colon without evidence of an obstruction. POS - [id number] Narrative 10/13/2018 5:25 PM EST HISTORY: Abdominal pain. History of colitis. COMPARISON: None FINDINGS: Supine AP views of the abdomen are performed. Large volumes of stool in the colon without an overt obstruction. No abdominal stones of concern. No definite organomegaly. Lung bases are clear. Severe degenerative changes at the lumbosacral junction and mild to moderate at other levels in the thoracolumbar spine. Old bilateral lower rib fracture deformities. Procedure Note Christiano Pryor MD - 10/13/2018 HISTORY: Abdominal pain. History of colitis. COMPARISON: None FINDINGS: Supine AP views of the abdomen are performed. Large volumes of stool in the colon without an overt obstruction. Noabdominal stones of concern. No definite organomegaly. Lung bases areclear. Severe degenerative changes at the lumbosacral junction and mildto moderate at other levels in the thoracolumbar spine. Old bilaterallower rib fracture deformities. IMPRESSION: Large volumes of stool throughout the colon without evidence of anobstruction. POS - [id number] Kyle Lutz DO IMG XR ABDOMEN Final Result * XR KNEE 4 OR MORE VIEWS (LEFT) (10/13/2018 4:07 PM EST) Anatomical Region Laterality Modality Knee Left Radiographic Aidee ging 10/13/2018 5:27 PM EST Impressions 10/13/2018 5:30 PM EST Interval total knee replacement. No acute fractures. Good alignment. POS - [id number] Narrative 10/13/2018 5:30 PM EST EXAM: XR KNEE 4 OR MORE VIEWS (LEFT) COMPARISON: May 27, 2017 FINDINGS: Metallic screw in the distal femur remains in place, however, the screw in the proximal tibia has been removed. Status post total knee replacement, with satisfactory alignment of the prosthetic components. No lucency surrounding the hardware to suggest loosening. Osseous fragment in the posterior knee joint. Amorphous calcifications in the superior patella. Small suprapatellar joint effusion. Prominent exostosis in the inferior patella is unchanged from prior study. No acute fractures. Procedure Note João Munoz MD - 10/13/2018 EXAM: XR KNEE 4 OR MORE VIEWS (LEFT) COMPARISON: May 27, 2017 FINDINGS: Metallic screw in the distal femur remains in place, however, the screw inthe proximal tibia has been removed. Status post total knee replacement,with satisfactory alignment of the prosthetic components. No lucencysurrounding the hardware to suggest loosening. Osseous fragment in theposterior knee joint. Amorphous calcifications in the superior patella.Small suprapatellar joint effusion. Prominent exostosis in the inferiorpatella is unchanged from prior study. No acute fractures. IMPRESSION: Interval total knee replacement. No acute fractures. Good alignment. POS - [id number] Kyle Lutz DO IMG XR LOWER EXTREMITY Final Result documented in this encounter Visit Diagnoses Diagnosis Abdominal pain, unspecified abdominal location History of left knee replacement History of left knee replacement Abdominal pain, unspecified abdominal location documented in this encounter Care Teams Transplanter Relationship Specialty Start Date End Date Kyle Lutz DO [address] [place] [address] PCP - General Internal Medicine 02/13/18 documented as of this encounter Additional Source Comments The information contained in this document represents components of the legal health record. It is not the complete legal health record.[facility]
--- OUTSIDE RECORDS SUMMARY | 2025-09-14 07:28 | XMS_ITS | Encounter Summary ---
Author Organization [facility] Address [address] [place] [address] Phone Care Team Providers Care Non Profit Financial Controller Name Role Phone Kyle Lutz DO Primary Care Provider Encounter Details Date Type Department Care Team (Late st Contact Info) Description 04/14/2020 Ancillary Orders Virtual Department 30 [place] [address] Kyle Lutz DO 15 [place] [address] Wheezing Social History Tobacco Use Types Packs/Day Years [...] as of this encounter Results * XR CHEST PA AND LATERAL 2 VIEWS (04/14/2020 1:27 PM EDT) Anatomical Region Laterality Modality Chest Radiographic Aidee ging 04/14/2020 1:33 PM EDT Impressions 04/14/2020 1:34 PM EDT No acute chest disease. POS - [id number] Narrative 04/14/2020 1:34 PM EDT HISTORY: As above. COMPARISON: 02/05/2019. CHEST RADIOGRAPH FINDINGS: Views: 3. Lines/Tubes: None. Heart and Mediastinum: Heart is normal in size. Stable aortic tortuosity. Lungs: Stable nonspecific mild diffuse accentuation of interstitial markings. No consolidation, edema, mass or pleural effusions. Bones: No acute findings. Soft Tissues: No acute findings. Procedure Note Natasha Lugo MD - 04/14/2020 HISTORY: As above. COMPARISON: 02/05/2019. CHEST RADIOGRAPH FINDINGS: Views: 3. Lines/Tubes: None. Heart and Mediastinum: Heart is normal in size. Stable aortictortuosity. Lungs: Stable nonspecific mild diffuse accentuation of interstitialmarkings. No consolidation, edema, mass or pleural effusions. Bones: No acute findings. Soft Tissues: No acute findings. IMPRESSION: No acute chest disease. POS - [id number] Kyle Lutz DO IMG XR CHEST Final Result documented in this encounter Visit Diagnoses Diagnosis Wheezing Wheezing documented in this encounter Care Teams Non Profit Financial Controller Relationship Specialty Start Date End Date Kyle Lutz DO [address] [place] [address] PCP - General Internal Medicine 02/13/18 documented as of this encounter Additional Source Comments The information contained in this document represents components of the legal health record. It is not the complete legal health record.[facility]
--- OUTSIDE RECORDS SUMMARY | 2025-09-14 07:28 | XMS_ITS | Encounter Summary ---
Author Organization [facility] Address [address] [place] [address] Phone Care Team Providers Care Milling Machine Set Up Operator Name Role Phone Kyle Lutz DO Primary Care Provider Encounter Details Date Type Department Care Team (Late st Contact Info) Description 12/05/2020 Ancillary Orders Virtual Department 30 [place] [address] Kyle Lutz DO 15 [place] [address] Abdominal pain, unspecified abdominal location; Pelvic pain Social History Tobacco Use Types Packs/Day [...] documented as of this encounter Results * US Inguinal (Right) (12/05/2020 3:39 PM EST) Anatomical Region Laterality Modality Chest Ultrasound 12/05/2020 3:20 PM EST Impressions 12/05/2020 3:30 PM EST No bowel herniation demonstrated in the right inguinal region. If clinical concern persists, consider pelvis CT without contrast. Narrative 12/05/2020 3:30 PM EST Exam: US PELVIS History: History of right inguinal hernia repair in 2019. COMPARISON: Abdomen ultrasound on April 27, 2019. Abdomen/pelvis CT on April 09, 2019. Findings: Targeted ultrasound was performed at location of the clinical concern in the right inguinal region as indicated by the patient. There is a shadowing structure in the right inguinal region that could represent the surgical mesh. No evidence of bowel herniation seen with Valsalva maneuver. No abnormal vascularity demonstrated with color Doppler evaluation. Procedure Note João Munoz MD - 12/05/2020 Exam: US PELVIS History: History of right inguinal hernia repair in 2019. COMPARISON: Abdomen ultrasound on April 27, 2019. Abdomen/pelvis CT on 2018. Findings: Targeted ultrasound was performed at location of the clinicalconcern in the right inguinal region as indicated by the patient. There jaquan shadowing structure in the right inguinal region that could representthe surgical mesh. No evidence of bowel herniation seen with Valsalvamaneuver. No abnormal vascularity demonstrated with color Dopplerevaluation. IMPRESSION: No bowel herniation demonstrated in the right inguinal region. If clinicalconcern persists, consider pelvis CT without contrast. Kyle Lutz DO [facility] US EXTREMITY Final Result documented in this encounter Visit Diagnoses Diagnosis Abdominal pain, unspecified abdominal location Pelvic pain Abdominal pain, unspecified abdominal location Pelvic pain documented in this encounter Care Teams Milling Machine Set Up Operator Relationship Specialty Start Date End Date Kyle Lutz DO [address] [place] [address] PCP - General Internal Medicine 02/13/18 documented as of this encounter Additional Source Comments The information contained in this document represents components of the legal health record. It is not the complete legal health record.[facility]
--- OUTSIDE RECORDS SUMMARY | 2025-09-14 07:28 | XMS_ITS | Encounter Summary ---
Author Organization [facility] Address [address] [address] Phone Care Team Providers Care Computer Programming Manager Name Role Phone Kyle Lutz DO Primary Care Provider Encounter Details Date Type Department Care Team (Late st Contact Info) Description 04/09/2019 Procedure Pass OR Admitting Dept - Virtual Department [address] [place] [phone] Social History Tobacco Use Types Packs/Day Years [...] documented as of this encounter Visit Diagnoses Not on filedocumented in this encounter Care Teams Computer Programming Manager Relationship Specialty Start Date End Date Kyle Lutz DO [address] [place] [address] PCP - General Internal Medicine 02/13/18 documented as of this encounter Additional Source Comments The information contained in this document represents components of the legal health record. It is not the complete legal health record.[facility]
--- OUTSIDE RECORDS SUMMARY | 2025-09-14 07:28 | XMS_ITS | Encounter Summary ---
Author Organization [facility] Address [address] [place] [address] Phone Care Team Providers Care Medical Science Liaison Name Role Phone Kyle Lutz DO Primary Care Provider Encounter Details Date Type Department Care Team (Late st Contact Info) Description 02/12/2020 Ancillary Orders Virtual Department 30 [place] [address] Kyle Lutz DO 15 [place] [address] Social History Tobacco Use Types Packs/Day Years [...] on filedocumented in this encounter Care Teams Medical Science Liaison Relationship Specialty Start Date End Date Kyle Lutz DO [address] [place] [address] [address] [place] [address] PCP - General Internal Medicine 02/13/18 documented as of this encounter Additional Source Comments The information contained in this document represents components of the legal health record. It is not the complete legal health record.[facility]
--- OUTSIDE RECORDS SUMMARY | 2025-09-14 07:28 | XMS_ITS | Encounter Summary ---
Author Organization [facility] Address [address] [place] [address] Phone Care Team Providers Care Yarn Weigher Name Role Phone Kyle Lutz DO Primary Care Provider Encounter Details Date Type Department Care Team (Latest Contact Info) Description 12/02/2020 Transcribe Orders Virtual Department 30 [place] [address] Kyle Lutz DO 15 [place] [address] Abdominal pain, unspecified abdominal location (Primary Dx); Pelvic pain Social History Tobacco Use Types [...] as of this encounter Visit Diagnoses Diagnosis Abdominal pain, unspecified abdominal location- Primary Pelvic pain documented in this encounter Care Teams Yarn Weigher Relationship Specialty Start Date End Date Kyle Lutz DO [address] [place] [address] [address] [place] [address] PCP - General Internal Medicine 02/13/18 documented as of this encounter Additional Source Comments The information contained in this document represents components of the legal health record. It is not the complete legal health record.[facility]
--- OUTSIDE RECORDS SUMMARY | 2025-09-14 07:28 | XMS_ITS | Encounter Summary ---
Author Organization [facility] Address [address] [place] [address] Phone Care Team Providers Care Migratory Worker Name Role Phone Kyle Lutz DO Primary Care Provider Encounter Details Date Type Department Care Team (Late st Contact Info) Description 02/05/2019 Ancillary Orders [facility], X-Ray - [address] [address] Kyle Lutz DO 15 [place] [address] Murmur Social History Tobacco Use Types Packs/Day Years [...] XR CHEST PA AND LATERAL 2 VIEWS (02/05/2019 9:25 AM EDT) Anatomical Region Laterality Modality Chest Radiographic Aidee ging 02/05/2019 10:5 6 AM EDT Impressions 02/05/2019 10:57 AM EDT No acute pulmonary process. Clear lungs. POS - [id number] Narrative 02/05/2019 10:57 AM EDT XR CHEST PA AND LATERAL 2 VIEWS HISTORY: EPISODIC MURMUR TECHNIQUE: PA and lateral views chest. COMPARISON: 09/04/2016 FINDINGS: The lungs are clear. There is no acute pulmonary consolidation, pulmonary edema or pleural effusion. The thoracic aorta is mildly tortuous. Normal cardiac and hilar contours. Procedure Note Ivy Soto MD - 02/05/2019 XR CHEST PA AND LATERAL 2 VIEWS HISTORY: EPISODIC MURMUR TECHNIQUE: PA and lateral views chest. COMPARISON: 09/04/2016 FINDINGS: The lungs are clear. There is no acute pulmonary consolidation, pulmonaryedema or pleural effusion. The thoracic aorta is mildly tortuous. Normal cardiac and hilarcontours. IMPRESSION: No acute pulmonary process. Clear lungs. POS - [id number] Kyle Lutz DO IMG XR CHEST Final Result documented in this encounter Visit Diagnoses Diagnosis Murmur Undiagnosed cardiac murmurs Murmur Undiagnosed cardiac murmurs documented in this encounter Care Teams Migratory Worker Relationship Specialty Start Date End Date Kyle Lutz DO [address] [place] [address] PCP - General Internal Medicine 02/13/18 documented as of this encounter Additional Source Comments The information contained in this document represents components of the legal health record. It is not the complete legal health record.[facility]
--- OUTSIDE RECORDS SUMMARY | 2025-09-14 07:28 | XMS_ITS | Encounter Summary ---
Author Organization [facility] Address [address] [place] [address] Phone Care Team Providers Care Tank Systems Maintainer Name Role Phone Kyle Lutz DO Primary Care Provider Encounter Details Date Type Department Care Team (Late st Contact Info) Description 04/27/2019 Ancillary Orders Virtual Department [address] [place] [id number] System, Provider Not In, [facility] [address] [address] Abdominal pain, unspecified abdominal location Social History Tobacco Use Types Packs/Day Years [...] as of this encounter Results * US ABDOMINAL WALL (04/27/2019 9:17 AM EDT) Anatomical Region Laterality Modality Abdomen Ultrasound 04/27/2019 1:51 PM EDT Impressions 04/27/2019 1:53 PM EDT Subcutaneous edema at the incision site in the right inguinal region. No fluid collection or evidence of a recurrent hernia. POS - [id number] Narrative 04/27/2019 1:53 PM EDT HISTORY: Recently postoperative for right inguinal incarcerated hernia. COMPARISON: Abdominal CT 04/09/2019 FINDINGS: Sonography performed in the area of swelling over the incision site in the right inguinal region. There is edema within the subcutaneous tissues. No focal collection. No evidence of a recurrent hernia. Procedure Note Christiano Pryor MD - 04/27/2019 HISTORY: Recently postoperative for right inguinal incarcerated hernia. COMPARISON: Abdominal CT 04/09/2019 FINDINGS: Sonography performed in the area of swelling over the incision site in theright inguinal region. There is edema within the subcutaneous tissues.No focal collection. No evidence of a recurrent hernia. IMPRESSION: Subcutaneous edema at the incision site in the right inguinal region. Nofluid collection or evidence of a recurrent hernia. POS - [id number] Kyle Lutz DO IMG US ABDOMEN Final Result documented in this encounter Visit Diagnoses Diagnosis Abdominal pain, unspecified abdominal location Abdominal pain, unspecified abdominal location documented in this encounter Care Teams Tank Systems Maintainer Relationship Specialty Start Date End Date Kyle Lutz DO [address] [place] [address] PCP - General Internal Medicine 02/13/18 documented as of this encounter Additional Source Comments The information contained in this document represents components of the legal health record. It is not the complete legal health record.[facility]
--- OUTSIDE RECORDS SUMMARY | 2025-09-14 07:28 | XMS_ITS | Encounter Summary ---
Author Organization [facility] Address [address] [place] [address] Phone Care Team Providers Care Ladle Repairman Name Role Phone Kyle Lutz DO Primary Care Provider Encounter Details Date Type Department Care Team (Late st Contact Info) Description 02/14/2018 Ancillary Orders [facility], X-Ray - [address] [address] Kyle Lutz DO [address] [place] [address] Sprain Social History Tobacco Use Types Packs/Day Years [...] as of this encounter Results * XR LUMBOSACRAL SPINE 4 OR MORE VIEWS (02/14/2018 9:25 AM EDT) Anatomical Region Laterality Modality L-spine Radiographic Aidee ging 02/14/2018 9:39 AM EDT Impressions 02/14/2018 9:46 AM EDT Degenerative disc and endplate changes at L5-S1, bilateral facet arthropathy at L3-L4 and L4-L5 appear essentially stable. Stable grade 1 spondylolisthesis of L4 and L5 probably due to degenerative facet arthropathy. No significant changes from 05/27/2017. POS - [id number] Narrative 02/14/2018 9:46 AM EDT HISTORY: Lower back pain. COMPARISON: Lumbar spine x-rays 05/27/2017. FINDINGS: AP, lateral, bilateral oblique views. No compression fractures. Approximately 5 mm of spondylolisthesis of L4 and L5 appears stable very minimal spondylolisthesis of L3 on L4. Moderate bilateral facet arthropathy L4-L5 and, to a slightly lesser extent L3- L4, appears essentially stable. No pars defects at L5 are clearly demonstrated. Moderate-severe disc space narrowing and moderate degenerative endplate changes at L5-S1 are very similar. More mild disc space narrowing and degenerative endplate change at L4-L5 appears stable. Tiny anterior osteophytes at multiple levels. No other significant changes. Procedure Note Jas Dietz MD - 02/14/2018 HISTORY: Lower back pain. COMPARISON: Lumbar spine x-rays 05/27/2017. FINDINGS: AP, lateral, bilateral oblique views. No compression fractures. Approximately 5 mm of spondylolisthesis of L4and L5 appears stable very minimal spondylolisthesis of L3 on L4.Moderate bilateral facet arthropathy L4-L5 and, to a slightly lesserextent L3-L4, appears essentially stable. No pars defects at L5 areclearly demonstrated. Moderate-severe disc space narrowing and moderate degenerative endplatechanges at L5-S1 are very similar. More mild disc space narrowing anddegenerative endplate change at L4-L5 appears stable. Tiny anteriorosteophytes at multiple levels. No other significant changes. IMPRESSION: Degenerative disc and endplate changes at L5-S1, bilateral facetarthropathy at L3-L4 and L4-L5 appear essentially stable. Stable grade 1spondylolisthesis of L4 and L5 probably due to degenerative facetarthropathy. No significant changes from 05/27/2017. POS - [id number] Kyle Lutz DO IMG XR SPINE Final Result * XR CERVICAL SPINE 4-5 VIEWS (02/14/2018 9:25 AM EDT) Anatomical Region Laterality Modality C-spine Radiographic Aidee ging 02/14/2018 9:56 AM EDT Impressions 02/14/2018 9:58 AM EDT Mild degenerative disc and endplate changes. No other explanation for pain. POS - [id number] Narrative 02/14/2018 9:58 AM EDT HISTORY: Cervical pain and headache for one year. COMPARISON: None. FINDINGS: AP, lateral, bilateral foraminal and open-mouth odontoid views. Disc spaces overall are well-maintained. Mild disc space narrowing and degenerative endplate changes at C5-C6 and C6-C7. Mild degenerative endplate changes at C7-T1. No subluxations. Mild bilateral neural foraminal narrowing due to facet arthropathy and tiny uncovertebral joint osteophytes at C4-C5 bilaterally. No evidence of high-grade neural foraminal narrowing. No suspicious lucencies or areas of sclerosis within the bones. Prevertebral soft tissues normal. Procedure Note Jas Dietz MD - 02/14/2018 HISTORY: Cervical pain and headache for one year. COMPARISON: None. FINDINGS: AP, lateral, bilateral foraminal and open-mouth odontoid views. Disc spaces overall are well-maintained. Mild disc space narrowing anddegenerative endplate changes at C5-C6 and C6-C7. Mild degenerativeendplate changes at C7-T1. No subluxations. Mild bilateral neuralforaminal narrowing due to facet arthropathy and tiny uncovertebral jointosteophytes at C4-C5 bilaterally. No evidence of high- grade neuralforaminal narrowing. No suspicious lucencies or areas of sclerosis withinthe bones. Prevertebral soft tissues normal. IMPRESSION: Mild degenerative disc and endplate changes. No other explanation forpain. POS - [id number] Kyle Lutz DO IMG XR SPINE Final Result * XR KNEE 4 OR MORE VIEWS (RIGHT) (02/14/2018 9:23 AM EDT) Anatomical Region Laterality Modality Knee Right Radiographic Aidee ging 02/14/2018 9:46 AM EDT Impressions 02/14/2018 9:56 AM EDT Mild degenerative changes. Possible signs of old MCL injury. No other explanation for pain. POS - [id number] Narrative 02/14/2018 9:56 AM EDT HISTORY: Pain, no trauma. COMPARISON: None. FINDINGS: Four views. Mild joint space narrowing at the medial and lateral compartments. Minimal spurring. Mild spurring of the tibial spines. Spurring and a small amount of well corticated ossific density adjacent to the medial femoral condyle which may be related to old injury involving the medial collateral ligament. No evidence of acute fractures. No dislocation. No definite joint effusion. Procedure Note Jas Dietz MD - 02/14/2018 HISTORY: Pain, no trauma. COMPARISON: None. FINDINGS: Four views. Mild joint space narrowing at the medial and lateral compartments.Minimal spurring. Mild spurring of the tibial spines. Spurring and asmall amount of well corticated ossific density adjacent to the medialfemoral condyle which may be related to old injury involving the medialcollateral ligament. No evidence of acute fractures. No dislocation. Nodefinite joint effusion. IMPRESSION: Mild degenerative changes. Possible signs of old MCL injury. No otherexplanation for pain. POS - [id number] Kyle Lutz DO IMG XR LOWER EXTREMITY Final Result documented in this encounter Visit Diagnoses Diagnosis Sprain Unspecified site of sprain and strain Sprain Unspecified site of sprain and strain Sprain Unspecified site of sprain and strain Sprain Unspecified site of sprain and strain documented in this encounter Care Teams Ladle Repairman Relationship Specialty Start Date End Date Kyle Lutz DO [address] [place] [address] PCP - General Internal Medicine 02/13/18 documented as of this encounter Additional Source Comments The information contained in this document represents components of the legal health record. It is not the complete legal health record.[facility]
--- OUTSIDE RECORDS SUMMARY | 2025-09-14 07:28 | XMS_ITS | Encounter Summary ---
Author Organization [facility] Address [address] [place] [phone] Phone Care Team Providers Care Office Workforce Planner Name Role Phone Kyle Lutz DO Primary Care Provider Encounter Details Date Type Department Care Team (Late st Contact Info) Description 08/02/2021 Ancillary Orders Virtual Department [address] [place] [address] Kyle Lutz DO [address] [place] [address] RLQ abdominal pain Social History Tobacco Use [...] as of this encounter Results * US LOWER EXTREMITY NON-VASCULAR LIMITED (RIGHT) (08/02/2021 1:43 PM EDT) Anatomical Region Laterality Modality Hip Right, Thigh Right, Knee Right, Leg Right, Ankle Right, Foot Right Ultrasound 08/02/2021 2:04 PM EDT Impressions 08/02/2021 2:11 PM EDT No mass or hernia is detected sonographically. Narrative 08/02/2021 2:11 PM EDT TECHNIQUE: US LOWER EXTREMITY NON-VASCULAR LIMITED (RIGHT) Focused sonographic evaluation of the right lower quadrant and groin with and without Valsalva. COMPARISON: CT April 09, 2019 FINDINGS: Scanning regionally does not demonstrate a discrete recurrent or residual hernia as seen on the prior CT. No clear changes seen with Valsalva. No adenopathy is seen regionally. Procedure Note Jose Cary MD - 08/02/2021 TECHNIQUE: US LOWER EXTREMITY NON-VASCULAR LIMITED (RIGHT) Focused sonographic evaluation of the right lower quadrant and groin withand without Valsalva. COMPARISON: CT April 09, 2019 FINDINGS: Scanning regionally does not demonstrate a discrete recurrent or residualhernia as seen on the prior CT. No clear changes seen with Valsalva. Noadenopathy is seen regionally. IMPRESSION: No mass or hernia is detected sonographically. Kyle Lutz DO [facility] US EXTREMITY Final Result documented in this encounter Visit Diagnoses Diagnosis RLQ abdominal pain Abdominal pain, right lower quadrant RLQ abdominal pain Abdominal pain, right lower quadrant documented in this encounter Care Teams Office Workforce Planner Relationship Specialty Start Date End Date Kyle Lutz DO [address] [place] [address] PCP - General Internal Medicine 02/13/18 documented as of this encounter Additional Source Comments The information contained in this document represents components of the legal health record. It is not the complete legal health record.[facility]
--- OUTSIDE RECORDS SUMMARY | 2025-09-14 07:28 | XMS_ITS | Encounter Summary ---
Author Organization [facility] Address [address] [place] [phone] Phone Care Team Providers Care Associate Professor Computer Science Name Role Phone Kyle Lutz DO Primary Care Provider Encounter Details Date Type Department Care Team (Latest Contact Info) Description 08/02/2021 Transcribe Orders Virtual Department [address] [place] [address] Kyle Lutz DO [address] [place] [address] RLQ abdominal pain (Primary Dx) Social History Tobacco Use Types [...] this encounter Visit Diagnoses Diagnosis RLQ abdominal pain- Primary Abdominal pain, right lower quadrant documented in this encounter Care Teams Associate Professor Computer Science Relationship Specialty Start Date End Date Kyle Lutz DO [address] [place] [address] [address] [place] [address] PCP - General Internal Medicine 02/13/18 documented as of this encounter Additional Source Comments The information contained in this document represents components of the legal health record. It is not the complete legal health record.[facility]
--- OUTSIDE RECORDS SUMMARY | 2025-09-14 07:28 | XMS_ITS | Encounter Summary ---
Author Organization [facility] Address [address] [place] [phone] Phone Care Team Providers Care Meter Tester Name Role Phone Kyle Lutz DO Primary Care Provider Encounter Details Date Type Department Care Team (Latest Contact Info) Description 06/20/2018 Transcribe Orders [facility] Laboratory [address] [place] [address] [phone] Kyle Lutz DO [address] [place] [phone] Facial pain (Primary Dx) Social History Tobacco Use [...] documented as of this encounter Results * D-dimer (06/20/2018 4:32 PM EDT) D-DIMER 390 <500 ng/mL FEU [facility] Blood 06/20/2018 4:32 PM EDT 06/20/2018 4:34 PM EDT Kyle Lutz DO LAB BLOOD ORDERABLES F inal Result [facility] [address] [place] [address] documented in this encounter Visit Diagnoses Diagnosis Facial pain- Primary Headache documented in this encounter Care Teams Meter Tester Relationship Specialty Start Date End Date Kyle Lutz DO [address] [place] [address] PCP - General Internal Medicine 02/13/18 documented as of this encounter Additional Source Comments The information contained in this document represents components of the legal health record. It is not the complete legal health record.[facility]
--- OUTSIDE RECORDS SUMMARY | 2025-09-14 07:28 | XMS_ITS | Encounter Summary ---
Author Organization [facility] Address [address] [place] [phone] Phone Care Team Providers Care Lining Repairer Name Role Phone Kyle Lutz DO Primary Care Provider Encounter Details Date Type Department Care Team (Latest Contact Info) Description 06/11/2018 Transcribe Orders [facility] Laboratory [address] [place] [address] Kyle Lutz DO [address] [place] [address] Fatigue, unspecified type (Primary Dx) Social History [...] documented as of this encounter Results * T3, Total (06/11/2018 9:25 AM EDT) TOTAL T3 129 80 - 200 ng/dL [facility] Blood 06/11/2018 9:25 AM EDT 06/11/2018 9:37 AM EDT us Kyle Lutz DO LAB BLOOD ORDERABLES F inal Result [facility] [address] [place] [address] * TSH (06/11/2018 9:25 AM EDT) TSH 2.43 0.27 - 4.20 uIU/mL [facility] Blood 06/11/2018 9:25 AM EDT 06/11/2018 9:38 AM EDT Kyle Lutz DO LAB BLOOD ORDERABLES F inal Result Performing Organization Address City/[facility]/ZIP Co de Phone Number [address] [address] * PSA (screening) (06/11/2018 9:25 AM EDT) PSA 1.49 0 - 4.00 ng/mL [facility] Blood 06/11/2018 9:25 AM EDT 06/11/2018 9:37 AM EDT Kyle Lutz LAB BLOOD ORDERABLES F inal Result Performing Organization Address City/[facility] Co de Phone Number [address] [phone] * (ABNORMAL) Lipid panel (06/11/2018 9:25 AM EDT) HDL 49 mg/dL [facility] Comment: Interpretation: Risk Level Males Decreased >45 mg/dL Average 40-45 mg/dL Increased <40 mg/dL CHOLESTEROL 203 0 - 240 mg/dL [facility] TRIGLYCERIDES 116 30 - 160 mg/dL [facility] LDL 131(H) 50 - 129 mg/dL [facility] Comment: LDL levels in terms of risk for coronary heart disease: <100 mg/dL: Optimal 100-129 mg/dL: Near or above optimal 130-159 mg/dL: Borderline high 160-189 mg/dL: High >190 mg/dL: Very High CARDIAC RISK RATIO 4.1 3.4 - 5.0 C [facility] Blood 06/11/2018 9:25 AM EDT 06/11/2018 9:38 AM EDT us Kyle Lutz DO LAB BLOOD ORDERABLES F inal Result Performing Organization Address City/[facility]/ZIP Co de Phone Number [address] [address] * Comprehensive metabolic panel (06/11/2018 9:25 AM EDT) SODIUM 142 133 - 146 mmol/L [facility] POTASSIUM 4.2 3.3 - 5.1 mmol/L [facility] CHLORIDE 104 96 - 108 mmol/L [facility] CO2 30 21 - 35 mmol/L [facility] BUN 13 6 - 19 mg/dL [facility] CREATININE 0.90 0.5 - 1.5 mg/dL [facility] GLUCOSE 91 70 - 99 mg/dL [facility] ALBUMIN 4.2 3.9 - 4.8 g/dL [facility] TOTAL PROTEIN 7.2 6.5 - 8.0 g/dL [facility] CALCIUM 9.3 8.4 - 10.3 mg/dL [facility] ALKALINE PHOSPHATASE 76 39 - 117 U/L [facility] TOTAL BILIRUBIN 1.1 0.0 - 1.2 mg/dL [facility] AST 21 0 - 37 U/L [facility] ALT 20 0 - 40 U/L [facility] GLOBULIN 3.0 1 - 4.8 g/dL [facility] EGFR 90 >59 mL/min/1.7 3m2 [facility] Comment:If patient is black, multiply result by 1.159. Estimated glomerular filtration rate calculated using the CKD-EPI equation. ANION GAP 12 10 - 20 mmol/L [facility] Blood 06/11/2018 9:25 AM EDT 06/11/2018 9:38 AM EDT us Kyle Lutz DO LAB BLOOD ORDERABLES F inal Result Performing Organization Address City/[facility]/ZIP Co de Phone Number [address] [phone] documented in this encounter Visit Diagnoses Diagnosis Fatigue, unspecified type- Primary documented in this encounter Care Teams Lining Repairer Relationship Specialty Start Date End Date Kyle Lutz DO [address] [place] [address] PCP - General Internal Medicine 02/13/18 documented as of this encounter Additional Source Comments The information contained in this document represents components of the legal health record. It is not the complete legal health record.[facility]
[2025-09-14 07:35] LABS: MANUAL DIFF FLAG NO
[2025-09-14 08:07] LABS: Hematocrit 44.0 % (42.0-52.0); Hemoglobin 14.7 g/dl (14.0-18.0); Imm Gran Abs Auto 0.04 X10*3/uL (0.00-0.03); Imm Gran Pct Auto 0.5 % (0.0-0.4); Lymphocytes Absolute Auto 1.2 X10*3/uL (1.2-4.9); Mean Corpuscular HGB Conc 33.4 g/dl (31.0-36.0); Mean Corpuscular Hemoglobin 33.7 pg (27.0-33.0); Mean Corpuscular Volume 100.9 fL (80.0-98.0); NRBC Abs Auto 0.000 X10*3/uL (0.0-0.012); NRBC Pct Auto 0.0 /100WBC (0.0-0.2); Platelet Count 134 X10*3/uL (160-400); Red Blood Count 4.36 X10*6/uL (4.60-5.80); White Blood Count 7.4 X10*3/uL (4.8-10.8)
[2025-09-14 08:15] LABS: INTERNATIONAL NORM RATIO 1.0 (0.9-1.1); Prothrombin Time 11.2 SEC (10.9-12.4)
[2025-09-14 08:18] LABS: Partial Thromboplastin Time 31.4 SEC (26.7-34.1)
[2025-09-14 08:31] LABS: Anion Gap 11 (12-20); Blood Urea Nitrogen 13 mg/dL (9-16); Calcium 9.2 mg/dL (8.4-10.2); Carbon Dioxide 29 mmol/L (22-29); Chloride 107 mmol/L (96-108); Cholesterol 199 mg/dL (<200); Estimated Glomerular Filt Rate > 60; HDL Cholesterol 42 mg/dL (>40); Potassium 4.2 mmol/L (3.3-5.1); Sodium 143 mmol/L (135-145); Triglycerides 118 mg/dL (<150)
== END 2025-09-14 07:26 | disposition home or self-care (01) ==
LOC: HO.LAB 07:25
PROVIDERS: PCP Neuromusculoskeletal Medicine, Sports Medicine; Visit Provider Neuromusculoskeletal Medicine, Sports Medicine
DX: Z01.818 Encounter for other preprocedural examination (principal); Z51.81 Encounter for therapeutic drug level monitoring; Z13.6 Encounter for screening for cardiovascular disorders
CPT/HCPCS: 36415; 80048; 80061; 85025; 85610; 85730